=== PATIENT | male | born 2005 | race Caucasian/White ===

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

== ENCOUNTER 2023-04-17 19:52 | Emergency (ER) | payer OTHER, MEDICAID, SELFPAY ==
[2023-04-17 19:58] VITALS: BP 164/96; PULSE 76; RESP 16; TEMP 36.8; O2SAT 96; BMI 35.5
--- NOTE | 2023-04-17 20:05 | XRR_ITS ---
PROCEDURE INFORMATION: Exam: XR Chest Exam date and time: 04/17/2023 8:11 PM Age: 18 years old Clinical indication: Chest pressure; Patient HX: C/O chest pain; Additional info: Cp TECHNIQUE: Imaging protocol: Radiologic exam of the chest. Views: 1 view. COMPARISON: CR XR chest 2V* [id number] 04/06/2018 2:54 AM FINDINGS: Lungs: No consolidation. Pleural spaces: No large pleural effusion. No pneumothorax. Heart/Mediastinum: Unremarkable cardiomediastinal silhouette. Bones/joints: No acute abnormality. XR/XR chest 1V portable [id number] IMPRESSION: No acute findings.
--- NOTE | 2023-04-17 20:05 | ECG_ITS ---
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 Measurements Intervals [place] Rate: 73 P: 74 [place]: 135 QRS: 75 QRSD: 89 T: 43 QT: 349 QTc: 387 Interpretive Statements SINUS RHYTHM Normal EKG Compared to ECG 04/06/2018 02:46:34 Sinus tachycardia no longer present Electronically Signed On 04-18-2023 9:15:39 [employer] by Jen Escobar M.D. [id number]
--- NOTE | 2023-04-17 20:08 | ED_ITS ---
HPI - Chest Pain General: Chief Complaint: Chest Pain Stated Complaint: Chest Pains Time Seen by Provider: 04/17/23 19:56 Source: patient Mode of arrival: ambulatory Limitations: no limitations History of Present Illness: 18-year-old male states that for the 1 to 2 hours ago he started having very sharp left-sided chest pain. States it is a 8 out of 10 pain is very sharp it is worse with deep inspiration along with movement and palpation. Denies any radiation of his pain denies any cough or fever denies any vomiting or diarrhea. Associated symptoms: Deny abdominal pain, dyspnea, fever(s), nausea or vomiting Review of Systems Const: Denies: fever(s), chills, body aches or change in appetite ENMT: Denies: throat pain or dental pain Card: Reports: chest pain Resp: Denies: dyspnea GI: Denies: abdominal pain, nausea, vomiting or diarrhea Musc: Denies: neck pain or back pain Skin/Breast: Denies: rash Neuro: Denies: headache(s) PFSH ED PFSH: Medical History No pertinent family history Surgical History No pertinent past surgical history Social History Smoking and tobacco/nicotine status: never used tobacco/nicotine Alcohol intake: never Substance/Drug Use: never Physical Exam Const: COMMON NORMALS: no acute distress, patient oriented x3 and healthy appearing HENMT: COMMON NORMALS: normocephalic and atraumatic HEAD & SCALP: normocephalic and atraumatic Neck/C-Spine: COMMON NORMALS: full ROM and supple Chest: COMMONS NORMALS: normal inspection of the chest; negative for normal palpation of entire chest wall (point tender over left [address]) Resp: COMMON NORMALS: normal respiratory effort, No retractions, No use of accessory muscles and clear to auscultation bilaterally AUSCULTATION: clear to auscultation bilaterally Cardio: COMMON NORMALS: regular rate, regular rhythm and No murmurs present (Cardio) RATE: regular rate RHYTHM: regular rhythm GI: COMMON NORMALS: Normal to inspection, nondistended, normoactive bowel sounds present, Soft to palpation, non-tender and no masses PALPATION: Yes Soft to palpation Extremity: COMMON NORMALS: normal to inspection and full ROM Neuro: COMMON NORMALS: patient oriented x3, moves all extremities and no focal motor deficits Psych: COMMON NORMALS: mental status grossly normal, Normal thought process present and cooperative THOUGHT PROCESS: Normal thought process present Skin: COMMON NORMALS: no rashes or lesions noted and no wounds GENERAL SKIN EXAM: no rashes or lesions noted Course Vital Signs: Vital signs: Vital Signs Temperature 98.3 F 04/17/23 19:58 Pulse Rate 59 L 04/17/23 20:49 Respiratory Rate 16 04/17/23 19:58 Blood Pressure 152/91 04/17/23 20:49 Pulse Oximetry 98 04/17/23 20:49 Oxygen Delivery Me thod Room Air 04/17/23 20:49 MDM - Chest Pain Medical Decision Making Patient presents here with chest pains atypical in nature he is point tender on exam likely chest wall pain blood work here is normal no signs of acute coronary syndrome no signs of dissection D-dimer is negative we will prescribe him Naprosyn he is to follow-up with PCP and return if worsening. Medical Records I reviewed the patient's medical records. Lab Data I reviewed the patient's lab results. 04/17/23 20:12 04/17/23 20:12 Radiology Impressions Chest X-Ray 04/17/23 20:05 IMPRESSION: No acute findings. Laboratory Results WBC 7.87 10^3/uL (4.5-13.0) 04/17/23 20:12 RBC 5.73 10^6/uL (3.85-5.65) H 04/17/23 20:12 Hgb 16.20 g/dL (13.2-15.6) H 04/17/23 20:12 Hct 47.4 % (37-53) 04/17/23 20:12 MCV 82.7 fl (82-101) 04/17/23 20:12 MCH 28.3 pg (27-33) 04/17/23 20:12 MCHC 34.2 g/dL (30-55) 04/17/23 20:12 RDW 12.1 % (12.1-15.1) 04/17/23 20:12 Plt Count 400 10^3/cmm (157-399) H 04/17/23 20:12 MPV 9.4 fL (7.4-10.4) 04/17/23 20:12 Neut % (Auto) 58.1 % 04/17/23 20:12 Lymph % (Auto) 32.7 % 04/17/23 20:12 [place] % (Auto) 8.0 % 04/17/23 20:12 Eos % (Auto) 0.6 % 04/17/23 20:12 Baso % (Auto) 0.5 % 04/17/23 20:12 Neut # (Auto) 4.57 10^3/uL (1.8-8.0) 04/17/23 20:12 Lymph # (Auto) 2.6 10^3/uL (1.5-6.5) 04/17/23 20:12 [place] # (Auto) 0.6 10^3/uL (0.2-0.9) 04/17/23 20:12 Eos # (Auto) 0.1 10^3/uL (0.0-0.8) 04/17/23 20:12 Baso # (Auto) 0.0 10^3/uL (0.0-0.1) 04/17/23 20:12 Nucleated RBC % (auto) 0 % 04/17/23 20:12 Nucleated RBCs # 0.0 /100WBC 04/17/23 20:12 D-Dimer <= 0.27 ug/mLFEU (0-0.59) 04/17/23 20:12 Sodium 139 mmol/L (136-145) 04/17/23 20:12 Potassium 4.0 mmol/L (3.5-5.1) 04/17/23 20:12 Chloride 101 mmol/L (98-107) 04/17/23 20:12 Carbon Dioxide 27 mmol/L (22-29) 04/17/23 20:12 Anion Gap 15.0 (5-19) 04/17/23 20:12 BUN 12 mg/dL (6-20) 04/17/23 20:12 Creatinine 1.0 mg/dL (0.7-1.2) 04/17/23 20:12 GFR Calculation 95.3 mL/min (90-130) 04/17/23 20:12 Glucose 105 mg/dL (65-115) 04/17/23 20:12 Calculated Osmolality 288 mOsm/kg (285-295) 04/17/23 20:12 Calcium 9.8 mg/dL (8.5-10.5) 04/17/23 20:12 Total Bilirubin 0.3 mg/dL (0.15-1.2) 04/17/23 20:12 AST 18 U/L (0-40) 04/17/23 20:12 ALT 23 U/L (0-41) 04/17/23 20:12 Alkaline Phosphatase 97 U/L (40-130) 04/17/23 20:12 Troponin T Baseline < 6 ng/L (0-15) 04/17/23 20:12 Total Protein 7.9 g/dL (6.6-8.7) 04/17/23 20:12 Albumin 4.5 g/dL (3.5-5.2) 04/17/23 20:12 Globulin 3.4 g/dL (1.3-4.6) 04/17/23 20:12 All radiology interpretation(s) finalized by discharge EKG Data EKG 1: I personally reviewed and interpreted this EKG as follows: EKG interpretation date: 04/17/23 EKG interpretation time: 20:00 Interpretation: nsr hr [address] or t wave abnormalities qrs 89 qtc 375 Discharge Plan Discharge Patient Disposition: Home Clinical Impression: Chest wall pain Condition: Stable Prescriptions: New Naprosyn 500 mg tablet 500 mg PO BID PRN (Reason: pain) Qty: 20 0RF No Action ibuprofen 800 mg tablet 800 mg PO Q8H PRN (Reason: pain) Qty: 30 0RF Discharge Orders: Discharge ED (Routine); Ordered 04/17/23 Ordered By: German De Dios Discharge Diet: Advance as tolerated Discharge Activity: Resume usual activity Patient Instructions: Chest Wall Pain (ED) Coding Level of Care Code ED Vice President Business Development for Ying Gutiérrez
[2023-04-17] MEDS: ondansetron 2 mg/ML SDV 2 mL 4 MG IVP (20:17)
[2023-04-17] MEDS: morphine 4 mg/mL SDV 1 mL IVP (20:17)
[2023-04-17 20:19] LABS: Basophils % 0.5 %; Eosinophils # 0.1 10^3/uL (0.0-0.8); Eosinophils % 0.6 %; Hematocrit 47.4 % (37-53); Lymphocytes # 2.6 10^3/uL (1.5-6.5); Lymphocytes % 32.7 %; Mean Corpuscular HGB Conc 34.2 g/dL (30-55); Mean Corpuscular Hemoglobin 28.3 pg (27-33); Mean Corpuscular Volume 82.7 fl (82-101); Mean Platelet Volume 9.4 fL (7.4-10.4); Monocytes # 0.6 10^3/uL (0.2-0.9); Neutrophils # 4.57 10^3/uL (1.8-8.0); Neutrophils % 58.1 %; Nucleated Red Blood Cells % 0 %; Platelet Count 400 10^3/cmm (157-399); Red Blood Count 5.73 10^6/uL (3.85-5.65); Red Cell Distribution Width 12.1 % (12.1-15.1); White Blood Count 7.87 10^3/uL (4.5-13.0)
[2023-04-17 20:35] LABS: D Dimer <= 0.27 ug/mLFEU (0-0.59)
[2023-04-17 20:49] VITALS: BP 152/91; PULSE 59; O2SAT 98
[2023-04-17 20:50] LABS: Troponin(5th) Baseline < 6 ng/L (0-15)
[2023-04-17 20:53] LABS: Alanine Aminotransferase 23 U/L (0-41); Albumin Level 4.5 g/dL (3.5-5.2); Alkaline Phosphatase 97 U/L (40-130); Aspartate Amino Transferase 18 U/L (0-40); Blood Urea Nitrogen 12 mg/dL (6-20); Calcium 9.8 mg/dL (8.5-10.5); Carbon Dioxide 27 mmol/L (22-29); Chloride 101 mmol/L (98-107); Globulin 3.4 g/dL (1.3-4.6); Glomerular Filtration Rate 95.3 mL/min (90-130); Glucose 105 mg/dL (65-115); Osmolality Calculated 288 mOsm/kg (285-295); Sodium 139 mmol/L (136-145); Total Bilirubin 0.3 mg/dL (0.15-1.2); Total Protein 7.9 g/dL (6.6-8.7)
== END 2023-04-17 21:13 | disposition home or self-care (01) ==
PROVIDERS: Emergency Provider Emergency Medicine
DX: R07.89 Other chest pain (principal)
CPT/HCPCS: 36415; 71045; 80053; 84484; 85025; 85378; 93005; 93010; 96374; 96375; 99285; J2270; J2405

== ENCOUNTER 2023-05-24 12:39 | Outpatient (CLI) | payer OTHER, MEDICAID, SELFPAY ==
--- NOTE | 2023-05-24 12:51 | ECG_ITS ---
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 Interpretive Statements NAME OF STUDY: TREADMILL STRESS TEST INDICATION: [Chest Pain, ] EXERCISE DATA: The patient was exercised by Gonzalez protocol. Baseline heart rate was 69 beats per minute. Baseline blood pressure was 128/83 millimeters of mercury. Target heart rate was 170 beats per minute. Maximum heart rate achieved was 174 which was 102% of the target heart rate. Maximum blood pressure was 193/67 millimeters of mercury. Total exercise time was 7 minutes and 52 seconds. Maximum METs achieved was 10.2. The reason for ending the test was completion of protocol. ELECTROCARDIOGRAM: BASELINE: Showed sinus rhythm, normal axis, no significant ST-T changes at the baseline noted. [] EXERCISE: At the peak exercise level, [] No significant ST-T changes suggestive of ischemia noted. [] RECOVERY: During the recovery period, heart rate dropped appropriately. No significant ST-T changes in the recovery suggestive of ischemia noted. [] CONCLUSION: 1. Exercise capacity is good 2. Heart rate response was appropriate 3. Blood pressure response was appropriate. 4. Symptoms not suggestive of ischemia. 5. Stress test not indicative of ischemia Electronically Signed On 06-07-2023 16:36:18 BRIQUETTE [employer]KER by Catalino Stearns M.D. [id number]
[2023-05-24 14:31] VITALS: BP 147/98; PULSE 98
== END 2023-05-24 12:40 | disposition home or self-care (01) ==
PROVIDERS: PCP Family Medicine; Visit Provider Family Medicine
DX: R07.9 Chest pain, unspecified (principal)
CPT/HCPCS: 93017

== ENCOUNTER 2024-06-09 10:55 | Emergency (ER) | payer SELFPAY ==
[2024-06-09 11:02] VITALS: BP 160/91; PULSE 70; RESP 17; TEMP 36.7; O2SAT 96; BMI 33.9
--- NOTE | 2024-06-09 11:16 | ED_ITS ---
HPI - Dental/Oral General: Chief complaint: Dental/Oral Stated complaint: right side tooth pain Time Seen by Provider: 06/09/24 10:59 Source: patient Mode of arrival: ambulatory Limitations: no limitations History of Present Illness: 19-year-old male states he been having r ight lower dental pain for the last 2 days states the pain sharp in nature rates it a 7 out of 10 he denies any fevers denies any difficulty swallowing. Denies any worsening improving factors Associated symptoms: Denies fever(s) Related Data Previous Rx's Medication Instructions Recorded cephalexin 500 mg capsule 500 mg PO TID 7 days #21 caps 06/09/24 hydrocodone 5 mg-acetaminophen 325 1 tab PO Q6H PRN pain #8 tabs 06/09/24 mg tablet naproxen 500 mg tablet (Naprosyn) 500 mg PO BID PRN pain #20 tabs 06/09/24 Allergies Allergy/AdvReac Type Severity Reaction Status Date / Time sulfamethoxazole Allergy rash Verified 04/17/23 20:04 [From Bactrim] trimethoprim [From Bactrim] Allergy rash Verified 04/17/23 20:04 Review of Systems Const: Denies: fever(s), chills, body aches or change in appetite ENMT: Reports: mouth pain; Denies: throat pain or dental pain Card: Denies: chest pain Resp: Denies: dyspnea GI: Denies: abdominal pain, nausea, vomiting or diarrhea Musc: Denies: neck pain or back pain Skin/Breast: Denies: rash Neuro: Denies: headache(s) PFS ED PFSH: Medical History No pertinent family history Surgical History No pertinent past surgical history Social History Smoking and tobacco/nicotine status: never used tobacco/nicotine Alcohol intake: never Substance/Drug Use: never Physical Exam Const: COMMON NORMALS: no acute distress, patient oriented x3 and healthy appearing HENMT: COMMON NORMALS: normocephalic and atraumatic HEAD & SCALP: normoceph alic and atraumatic OTHER: Tenderness over right lower molar no abscess or trismus Eye: COMMON NORMALS: conjunctivae normal CONJUNCTIVA: Yes conjunctivae normal Neck/C-Spine: COMMON NORMALS: full ROM and supple Chest: COMMONS NORMALS: normal inspection of the chest Resp: COMMON NORMALS: normal respiratory effort, No retractions, No use of accessory muscles and clear to auscultation bilaterally AUSCULTATION: clear to auscultation bilaterally Cardio: COMMON NORMALS: regular rate RATE: regular rate Extremity: COMMON NORMALS: normal to inspection and full ROM Neuro: COMMON NORMALS: patient oriented x3, moves all extremities and no focal motor deficits Psych: COMMON NORMALS: mental status grossly normal, Normal thought process present and cooperative THOUGHT PROCESS: Normal thought process present Skin: COMMON NORMALS: no rashes or lesions noted and no wounds GENERAL SKIN EXAM: no rashes or lesions noted Course Vital Signs: Vital signs: Vital Signs Temperature 98.0 F 06/09/24 11:02 Pulse Rate 70 06/09/24 11:02 Respiratory Rate 17 06/09/24 11:02 Blood Pressure 160/91 06/09/24 11:02 Pulse Oximetry 96 06/09/24 11:02 Oxygen Delivery Me thod Room Air 06/09/24 11:02 MDM - Dental/Oral Medical Decision Making Patient presents for dental pain has no signs of abscess he has no trismus we will start him on antibiotics he is follow-up with dentist return if worsening Medical Records I reviewed the patient's medical records. No radiology studies performed this visit Discharge Plan Discharge Patient Disposition: Home Clinical Impression: Toothache Condition: Stable Prescriptions: New hydrocodone-acetaminophen 5-325 mg tablet 1 tab PO Q6H PRN (Reason: pain) Qty: 8 0RF cephalexin 500 mg capsule 500 mg PO TID 7 Days Qty: 21 0RF naproxen [Naprosyn] 500 mg tablet 500 mg PO BID PRN (Reason: pain) Qty: 20 0RF Discharge Orders: Discharge ED (Routine); Ordered 06/09/24 Ordered By: German De Dios Referrals: Lyudmila Verdugo MD [Primary Care Provider] - Discharge Diet: Advance as tolerated Discharge Activity: Resume usual activity Patient Instructions: Toothache (ED), Opioid Safety Coding Level of Care Code ED [employer] for Chg Marla
[2024-06-09] MEDS: HYDROcodone-acetaminophen 5-325 mg Tablet 1 TAB PO (11:22)
[2024-06-09 11:25] VITALS: PULSE 63; O2SAT 98
== END 2024-06-09 11:27 | disposition home or self-care (01) ==
PROVIDERS: Emergency Provider Emergency Medicine; PCP Family Medicine
DX: K08.89 Other specified disorders of teeth and supporting structures (principal)
CPT/HCPCS: 99283